=== PATIENT | male | born 2000 | race Caucasian/White ===

== ENCOUNTER 2023-10-16 08:00 | Emergency (ER) | payer BC, SELFPAY ==
[2023-10-16 08:08] VITALS: BP 107/71; PULSE 78; RESP 14; TEMP 36.7; O2SAT 99; BMI 22.0
--- NOTE | 2023-10-16 08:09 | ECG_ITS ---
APPROVED REPORT Exam: Resting ECG HR:61 bpm ECG Measurements Heart Rate 61 AXES MT 179 P 59 QRSd 113 QRS 53 QT 418 T 11 QTc 421 Conclusion SINUS RHYTHM WITH SINUS ARRHYTHMIA POSSIBLE RIGHT VENTRICULAR CONDUCTION DELAY [RSR (QR) IN V1/V2] BORDERLINE ECG Unchanged from prior ECG Electronically signed by : MYA VERGARA, 10/16/2023 17:02:41
--- NOTE | 2023-10-16 08:16 | PC.NURSE ---
dr blanco at bedside
--- NOTE | 2023-10-16 08:22 | HMH.EDGENADL ---
Discharge Plan Disposition Patient Disposition: Home, Self-Care Condition: Good Prescriptions Prescriptions: No Action No Known Home Medications Referrals Follow up/Referrals: Clover Stephens APRN [Primary Care Provider] - See instructions Activity Restrictions/Add. Instructions Additional Instructions/Restrictions: You were evaluated in the emergency department today. At this time, your potassium is mildly low, likely related to your poor oral intake. Please make sure that you sleep well and eat a well-balanced diet. Make sure that you stay hydrated. Follow-up closely with your primary care provider for reassessment. Return to the emergency department for new or worsening symptoms Clinical Impressions Clinical Impression: Syncope, Hypokalemia Stand Alone Forms Stand Alone Forms: Work/School Release Instructions Patient Instructions: DI for Syncope in Adults (Fainting), DI for Hypokalemia Print Language Print Language: Scottish Discharge ED Provider: Consuelo Bond General Adult HPI General Chief complaint: Syncope Stated complaint: Fainted, pale Time Seen by Provider: 10/16/23 08:03 Mode of Arrival: Ambulatory Source of Information: Patient Limitations: No Limitations Description of Symptoms (Recalled from ER Triage Doc. by RN): pts father reports that the pt walked in and as they were talking his eyes closed and he fell back. Dad reports he had a LOC of about 4-5 seconds. pt states he did not have any symptoms prior or after waking up. Dad reports the pt has not been eating or sleeping due to transition of care specialist. pts BSFS @0806 was 127. pt denies pain or injury post fall. 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 Patient reports that he had not been sleeping much because he is working nights and also has not been eating very much at all, only having snacks as opposed to eating actual meals. He was talking to his dad earlier this morning when his dad noted that he started to go out, slumped up against the wall, and his dad helped lower him to the ground. No hard fall or injury noted. He briefly lost consciousness for approximately 4 seconds, but then immediately was conversational again with no seizure activity or postictal period. Patient states that he was feeling okay prior to this and does not remember any specific concerns or complaints, such as headache, visual changes, numbness, tingling, chest pain, shortness of breath, or other concerns. He states he is also feeling fine currently. He did eat a meal prior to arrival after the syncopal episode. He denies any current symptoms and also denies any history of recent surgeries, immobilization, calf pain or swelling. His mom reports that his pulmonary artery was wrapped around his trachea at , so he had a pulmonary sling to repair this but is since been cleared by cardiology and does not require follow-up with them. He also notes that he had had some intermittent pain with eating that lasted for about a year, but that has resolved and he has not been dealing with that at all for about a month now. Related Data Home Medications ?Medication ?Instructions ?Recorded ?Confirmed No Known Home Medications 11/05/17 10/16/23 Allergies Allergy/AdvReac Type Severity Reaction Status Date / Time No Known Allergies Allergy Verified 10/16/23 08:14 [facility] Disclaimer: The information contained in this section may have been updated after the patient was seen, as this information can be updated by other users. Social History Smoking Status: Never smoker alcohol intake: never current occupational status: student Travel in the last 8 weeks: None ROS Obtained: Yes All systems reviewed & no additional complaints except as documented Physical Exam General General appearance: alert and in no apparent distress Head Head exam: atraumatic and normocephalic Eye Eye exam: Present normal appearance, PERRL and EOMI ENT ENT exam: Present normal exam, normal oropharynx, mucous membranes moist and normal external ear exam Neck Neck exam: Present normal inspection, full ROM and trachea midline; Absent tenderness Chest Chest inspection: Present normal inspection and symmetric chest wall rise; Absent tenderness Respiratory Respiratory exam: Present normal lung sounds bilaterally; Absent respiratory distress, wheezes, stridor or accessory muscle use Cardiovascular Cardiovascular exam: Present regular rate and normal rhythm Abdominal Exam Abdominal exam: Present soft; Absent distention, tenderness or guarding Extremities Exam Extremities exam: Present normal inspection, full ROM and normal capillary refill; Absent tenderness or edema Back Exam Back exam: Present normal inspection and full ROM; Absent tenderness Neurological Exam Neurological exam: Present alert, oriented X3, CN II-XII intact and normal gait; Absent motor sensory deficit Psychiatric Psychiatric exam: Present normal affect and normal mood Skin Skin exam: Present warm and dry Medical Decision Making Medical Records Medical records reviewed: Yes I reviewed the patient's medical records. Joao Inquiry Pt receiving controlled substance: No Vital Signs: 10/16/23 08:08 10/16/23 08:30 10/16/23 09:19 Temperature 98.1 F 98.1 F Temperature Source Oral Pulse Rate 72 65 Pulse Rate [Left] 78 Respiratory Rate 14 14 Blood Pressure 104/62 L 121/74 Blood Pressure [Right Arm] 107/71 L Blood Pressure Mean 76 Blood Pressure Mean [Right Arm] 83 Blood Pressure Source [Right Arm] Automatic Cuff Blood Pressure Position [Right Arm] Sitting 02 Sat by Pulse Oximetry 99 100 Oxygen Delivery Method Room Air Room Air Lab Data Lab results reviewed: Yes I reviewed the patient's lab results. Lab Results 10/16/23 08:27: WBC 3.7 L, RBC 5.15, Hgb 14.4, Hct 44.9, MCV 87.0, MCH 27.8, MCHC 32.0, RDW 13.3, Plt Count 146, MPV 8.6, Neut % (Auto) 67.5, Lymph % (Auto) 22.8, [place] % (Auto) 6.9, Eos % (Auto) 2.1, Baso % (Auto) 0.7, Neut # (Auto) 2.5, Lymph # (Auto) 0.8, [place] # (Auto) 0.3, Eos # (Auto) 0.1, Baso # (Auto) 0.0, Sodium 140, Potassium 3.4 L, Chloride 104, Carbon Dioxide 28, Anion Gap 11.4, BUN 20, Creatinine 0.90, Estimated Creat Clear 122, Estimated GFR 108, Est GFR ( Amer) 130, Glucose 165 H, Calcium 9.2, Magnesium 2.0, Total Bilirubin 0.8, AST 27, ALT 20, Alkaline Phosphatase 36 L, Total Protein 6.6, Albumin 4.2, Globulin 2.4, Albumin/Globulin Ratio 1.8 10/16/23 08:27 10/16/23 08:27 Orders (Tests/Meds): ED MEDICATIONS Generic Name Dose Route Start Last Admin Trade Name Freq PRN Reason Stop Dose Admin Lactated Ringer's 1,000 mls @ 999 mls/hr 10/16/23 08:27 10/16/23 08:33 Lactated Ringer's 1000 Ml Bag IV 10/16/23 09:27 999 mls/hr .Q1H1M ONE Administration Discontinued Medications Generic Name Dose Route Start Last Admin Trade Name Mariano PRN Reason Stop Dose Admin Potassium Chloride 40 meq 10/16/23 09:03 10/16/23 09:05 Potassium Chloride 20meq Tab PO 10/16/23 09:04 40 meq ONCE ONE Administration ORDERS Category Date Time Status CBC w/Auto Diff [Complete Blood Count Auto Diff] Stat Lab 10/16/23 08:27 Completed CMP [Comprehensive Metabolic Panel] Stat Lab 10/16/23 08:27 Completed MAG [Magnesium] Stat Lab 10/16/23 08:27 Completed ECG Data Tracing #1: I reviewed this ECG and interpreted as documented below: Normal sinus rhythm with sinus arrhythmia with a ventricular rate of 61 bpm. Mild right ventricular conduction delay. No acute ST changes concerning for ischemia ECG initial impression date: 10/16/23 ECG initial impression time: 08:10 Medical Decision Narrative: In summary, this patient is a 22-year-old male presenting to the Emergency Department for evaluation of syncope. Differential diagnoses considered include but are not limited to vasovagal syncope, dehydration, sleep deprivation, electrolyte derangements, dysrhythmia, PE, ACS. Ruling out the most morbid conditions drove assessment. On exam, patient is resting comfortably in bed in no acute distress with no concerns or complaints of any symptoms at this time. He had no prodrome of headache, chest pain, or other concerns. He is neurologically intact with normal cardiopulmonary exam, no calf pain or swelling, and he is PERC negative for pulmonary embolus. Vitals reassuring on cardiac telemetry, and fingerstick blood glucose is normal. EKG obtained is reassuring. After shared decision making, family and patient would like to proceed with basic lab evaluation to evaluate for electrolyte derangements or other abnormality in the setting of his poor recent oral intake workup included CBC, CMP, magnesium. Based on reassuring exam and history, I do not feel that other labs or imaging are indicated at this time. Patient was given a bolus of IV fluids. On multiple subsequent reassessments, the patient is resting comfortably with normal vital signs and cardiac telemetry. Labs demonstrated very mild hypokalemia, for which oral replacement was ordered. Mild leukopenia without neutropenia, which is nonspecific. Patient remained asymptomatic on reassessment. Given reassuring workup and exam, I feel that he likely had a benign cause of syncope, most likely related to sleep deprivation and poor oral intake. Since he is asymptomatic, I feel that he is appropriate for discharge home with close follow-up with his primary care provider. Strict return precautions were given as well as instructions for hydration and rest. Critical Care Critical Care Time Critical Care Time: No
[2023-10-16 08:30] VITALS: BP 104/62; PULSE 72; O2SAT 100
[2023-10-16] MEDS: LACTATED RINGERS 1000ML 1,000 ML 999 ML IV (08:33)
[2023-10-16 08:46] LABS: Alanine Aminotransferase 20 U/L (12-78); Albumin Level 4.2 g/dl (3.5-5.0); Albumin/Globulin Ratio 1.8 (1.1-1.8); Alkaline Phosphatase 36 U/L (38-126); Anion Gap 11.4 mEq/L (5-15); Aspartate Amino Transferase 27 U/L (17-59); Bilirubin,Total 0.8 mg/dl (0.2-1.3); Blood Urea Nitrogen 20 mg/dl (9-20); Calcium 9.2 mg/dl (8.4-10.2); Carbon Dioxide 28 mmol/L (22.0-30.0); Chloride 104 mmol/L (98-107); Creatinine Clearance Estimated 122 mL/min (50-200); Estimated Glomerular Filt Rate 108 ml/min (>60); GFR (African American) 130 ML/MIN (>60); Globulin 2.4 g/dL (1.3-3.2); Glucose 165 mg/dl (74-100); Potassium 3.4 mmoL/L (3.5-5.1); Sodium 140 mmol/L (136-145); Total Protein,Serum 6.6 g/dl (6.3-8.2)
--- NOTE | 2023-10-16 08:49 | PC.NURSE ---
I rounded on the pt. no needs voiced, no complaints. pt is visiting with his parents. call phillips in reach.
[2023-10-16 08:53] LABS: Basophils % 0.7 % (0.1-2.0); Eosinophils # 0.1 K/mm3 (0.0-0.4); Eosinophils % 2.1 % (0.1-12.0); Hematocrit 44.9 % (42.0-52.0); Hemoglobin 14.4 g/dL (14.1-18.0); Lymphocytes # 0.8 K/mm3 (0.7-4.5); Lymphocytes % 22.8 % (10-50); Mean Corpuscular Hemoglobin 27.8 pg (27.0-31.2); Mean Platelet Volume 8.6 fl (7.4-10.4); Monocytes # 0.3 K/mm3 (0.1-1.0); Monocytes % 6.9 % (1.7-9.3); Neutrophils # 2.5 K/mm3 (1.8-7.8); Neutrophils % 67.5 % (37.0-80.0); Platelet Count 146 K/mm3 (142-424); Red Blood Count 5.15 M/mm3 (4.60-6.20); Red Cell Distribution Width 13.3 % (11.5-17.5); White Blood Count 3.7 K/mm3 (4.5-13.0)
[2023-10-16] MEDS: POTASSIUM CHLORIDE 20MEQ TAB 40 MEQ PO (09:05)
[2023-10-16 09:19] VITALS: BP 121/74; PULSE 65; RESP 14; TEMP 36.7
== END 2023-10-16 09:31 | disposition home or self-care (01) ==
PROVIDERS: Emergency Provider Emergency Medicine; PCP Nurse Practitioner Family
DX: R55 Syncope and collapse (principal); E87.6 Hypokalemia; I49.9 Cardiac arrhythmia, unspecified
CPT/HCPCS: 80053; 83735; 85025; 93005; 96360; 99284; J7120